=== PATIENT | female | born 1990 | race Two or more races ===

== ENCOUNTER 2018-07-19 21:09 | Emergency (ER) | payer SELFPAY ==
[~2018-07-19] VITALS: Ht 167.6 cm; Wt 58.1 kg
[2018-07-19 21:23] VITALS: BP 127/57
[2018-07-20 04:00] LABS: Urine Bacteria MOD /hpf (None Seen); Urine Blood Negative /uL (Negative); Urine Mucus FEW (None Seen); Urine Specific Gravity 1.032 (1.001-1.035); Urine WBC 58 /hpf (0 - 5)
== END 2018-07-20 04:45 | disposition left against medical advice (07) ==
LOC: ER 21:09 → EDBD 21:09 → ER 07-20 04:45
DX: M54.2 Cervicalgia (principal); Z53.21 Procedure and treatment not carried out due to patient leaving prior to being seen by health care provider; V43.62XA Car passenger injured in collision with other type car in traffic accident, initial encounter; Y93.89 Activity, other specified; Y92.410 Unspecified street and highway as the place of occurrence of the external cause; Y99.8 Other external cause status
CPT/HCPCS: 70450; 72125; 74176; 81001